=== PATIENT | female | born 1990 | race African-American/Black ===

== ENCOUNTER 2024-05-21 09:25 | Emergency (ER) | payer SELFPAY ==
[~2024-05-21] VITALS: Ht 167.6 cm; Wt 89.8 kg
[2024-05-21 09:38] VITALS: RESP 22; TEMP 98.8
[2024-05-21] MEDS: DEXAMETHASONE 4 MG TAB PO STA (10:00)
[2024-05-21 10:05] VITALS: PULSE 74; RESP 22
[2024-05-21] MEDS: ALBUTEROL/IPRATROPIUM 3 ML NEB NEB ONE (10:05)
[2024-05-21 11:00] VITALS: PULSE 95; O2SAT 97
[2024-05-21] MEDS ORDERED: VENTOLIN HFA18 GM INH (11:16)
== END 2024-05-21 12:07 | disposition home or self-care (01) ==
LOC: ER 09:34
DX: R06.02 Shortness of breath (principal); J45.901 Unspecified asthma with (acute) exacerbation
CPT/HCPCS: 99284; J8540

== ENCOUNTER 2024-05-23 19:25 | Observation (INO) | payer MEDICARE ==
[~2024-05-23] VITALS: Ht 167.6 cm; Wt 89.8 kg
[~2024-05-23 19:25] MED LIST: VENTOLIN HFA18 GM INH
[2024-05-23 20:37] VITALS: TEMP 98.7
[2024-05-23] MEDS: PREDNISONE 20 MG TAB PO STA (20:49)
[2024-05-23 21:05] LABS: BASOPHILS # (AUTO) 0.1 (0.0-0.1); EOSINOPHILS # (AUTO) 0.8 (0.0-0.4); EOSINOPHILS % 8.2 % (0.0-6.0); HEMOGLOBIN 12.8 g/dL (12.0-16.0); LYMPHOCYTES # (AUTO) 2.3 (1.0-3.2); LYMPHOCYTES % 22.8 % (18.0-39.1); MEAN CORPUSCULAR HEMOGLOBIN 29.7 pg (28-32); MEAN CORPUSCULAR HGB CONC 33.7 g/dL (31-35); MEAN CORPUSCULAR VOLUME 88.2 fL (81-99); MONOCYTES # (AUTO) 0.9 (0.2-0.8); NEUTROPHILS % 58.7 % (38.7-80.0); PLATELET COUNT 165 x10e3/uL (140-360); RED BLOOD COUNT 4.31 x10e6/uL (3.6-5.1); WHITE BLOOD COUNT 10.21 x10e3/uL (4.8-10.8)
[2024-05-23] MEDS: MAGNESIUM SULF 1GRAM/DEXTROSE 100 ML IV STA (21:08)
[2024-05-23 21:09] VITALS: PULSE 103; RESP 20; O2SAT 100
[2024-05-23] MEDS: ALBUTEROL/IPRATROPIUM 3 ML NEB NEB STA (21:13)
[2024-05-23 21:19] LABS: ALBUMIN/GLOBULIN RATIO 1.3 (0.8-2.0); ANION GAP 15.7 mmol/L (8-16); BILIRUBIN,TOTAL 1.2 mg/dL (0.2-1.2); CALCIUM 9.2 mg/dL (8.4-10.2); CREATININE, SERUM 0.8 mg/dL (0.57-1.11); TOTAL PROTEIN 7.1 g/dL (6.5-8.1)
[2024-05-23 21:25] LABS: TROPONIN I 0.002 ng/mL (0-0.300)
[2024-05-23 21:40] LABS: STREPTOCOCCUS GRP A ANTIGEN NEGATIVE (NEGATIVE)
[2024-05-23 21:41] LABS: CORONAVIRUS COVID-19 AG NEGATIVE (NEGATIVE); INFLUENZA A AG NEGATIVE (NEGATIVE); INFLUENZA B AG NEGATIVE (NEGATIVE)
[2024-05-23 21:43] VITALS: PULSE 99; RESP 22
[2024-05-23 22:11] LABS: POTASSIUM 2.7 mmol/L (3.5-5.1)
[2024-05-23 22:30] VITALS: BP 120/70; PULSE 86; RESP 20; TEMP 99; O2SAT 99
[2024-05-23 22:48] VITALS: BP 120/70; PULSE 86; RESP 20; TEMP 99; O2SAT 99
[2024-05-24] MEDS: POTASSIUM CHLORIDE 20 MEQ TAB CR PO STA (00:13)
[2024-05-24] MEDS: SODIUM CHLORIDE 0.9% 1000ML 1,000 ML IV SCH (00:33)
[2024-05-24] MEDS: METHYLPREDNISOLONE SOD SUCC 40 MG/ML VIAL 1ML IV SCH (02:14)
[2024-05-24 02:51] VITALS: PULSE 89; RESP 20; O2SAT 99
[2024-05-24] MEDS: ALBUTEROL/IPRATROPIUM 3 ML NEB NEB PRN (02:54)
[2024-05-24 03:21] LABS: CREATINE KINASE 125 IU/L (29-168)
[2024-05-24 03:23] VITALS: BP 123/72; PULSE 99; RESP 18; TEMP 98.4; O2SAT 94
[2024-05-24 03:30] LABS: TROPONIN I < 0.001 ng/mL (0-0.300)
[2024-05-24 05:24] LABS: BASOPHILS % 0.4 % (0.0-1.0); HEMATOCRIT 37.9 % (34.2-44.1); HEMOGLOBIN 12.8 g/dL (12.0-16.0); LYMPHOCYTES # (AUTO) 0.4 (1.0-3.2); LYMPHOCYTES % 9.4 % (18.0-39.1); MEAN CORPUSCULAR HGB CONC 33.8 g/dL (31-35); MEAN CORPUSCULAR VOLUME 88.8 fL (81-99); MONOCYTES # (AUTO) 0.1 (0.2-0.8); MONOCYTES % 1.9 % (4.4-11.3); NEUTROPHILS # (AUTO) 4.1 (2.1-6.9); NEUTROPHILS % 87.9 % (38.7-80.0); PLATELET COUNT 169 x10e3/uL (140-360); RED BLOOD COUNT 4.27 x10e6/uL (3.6-5.1); RED CELL DISTRIBUTION WIDTH 12.8 % (11.7-14.4); WHITE BLOOD COUNT 4.66 x10e3/uL (4.8-10.8)
[2024-05-24 05:59] LABS: ALBUMIN 3.7 g/dL (3.5-5.0); ALBUMIN/GLOBULIN RATIO 1.2 (0.8-2.0); ANION GAP 13.7 mmol/L (8-16); BILIRUBIN,TOTAL 0.9 mg/dL (0.2-1.2); CALCIUM 9.1 mg/dL (8.4-10.2); CREATININE, SERUM 0.79 mg/dL (0.57-1.11); POTASSIUM 3.7 mmol/L (3.5-5.1); TOTAL PROTEIN 6.8 g/dL (6.5-8.1)
[2024-05-24 06:17] VITALS: PULSE 98; RESP 22; O2SAT 98
[2024-05-24] MEDS ORDERED: MELATONIN 3 MG TAB PO PRN (06:45)
[2024-05-24] MEDS ORDERED: SIMETHICONE 80 MG CHEW PO PRN (06:45)
[2024-05-24] MEDS ORDERED: METOPROLOL TARTRATE INJ 1 MG/ML VIAL IV PRN (06:45)
[2024-05-24] MEDS ORDERED: GUAIFENESIN/DEXTROMETHORPHAN LIQD 5 ML UDC NG PRN (06:45)
[2024-05-24] MEDS ORDERED: DOCUSATE SODIUM 100 MG CAP PO PRN (06:45)
[2024-05-24] MEDS ORDERED: ACETAMINOPHEN 325 MG TAB PO PRN (06:45)
[2024-05-24] MEDS ORDERED: ONDANSETRON HCL INJ 2MG/ML 2ML 2 MG/ML VIAL IV PRN (06:45)
[2024-05-24 08:00] VITALS: BP 115/55; PULSE 106; RESP 20; TEMP 98.6; O2SAT 100
[2024-05-24 08:15] LABS: CHOL/HDL RATIO 2.4 (3.0-3.6)
[2024-05-24] MEDS: FAMOTIDINE 20 MG TAB PO SCH (09:06)
[2024-05-24] MEDS: LORATADINE 10 MG TAB PO SCH (09:06)
[2024-05-24] MEDS: BENZONATATE 100 MG CAP PO SCH (09:11)
[2024-05-24] MEDS: Doxycycline IV 100 MG in SODIUM CHLORIDE 0.9% 100 ML IV SCH (09:23)
[2024-05-24 11:00] VITALS: BP 124/81; PULSE 87; RESP 19; TEMP 98.2; O2SAT 100
[2024-05-24 11:15] LABS: TROPONIN I 0.01 ng/mL (0-0.300)
[2024-05-24] MEDS ORDERED: SINGULAIR10 MG PO (12:19)
[2024-05-24] MEDS ORDERED: FAMOTIDINE20 MG PO (12:19)
[2024-05-24] MEDS ORDERED: BENZONATATE100 MG PO (12:19)
[2024-05-24] MEDS ORDERED: LORATADINE10 MG PO (12:19)
[2024-05-24] MEDS ORDERED: PREDNISONE20 MG PO (12:19)
[2024-05-24] MEDS ORDERED: ENOXAPARIN SOD INJ 40 MG/0.4 ML SYR SC SCH (17:00)
[2024-05-24] MEDS ORDERED: BUDESONIDE/FORMOTEROL 160/4.5MCG INHALER INH SCH (19:00)
[2024-05-24] MEDS ORDERED: MONTELUKAST SODIUM 10 MG TAB PO SCH (21:00)
[2024-05-25] MEDS ORDERED: PREDNISONE 20 MG TAB PO SCH (09:00)
== END 2024-05-24 13:40 | disposition home or self-care (01) ==
LOC: ER 19:41 → ERHOLD 21:28 → MED/SURG 22:29
PROVIDERS: ADMIT Internal Medicine; ATTEND Internal Medicine
DX: J45.901 Unspecified asthma with (acute) exacerbation (principal); E66.9 Obesity, unspecified; Z68.32 Body mass index [BMI] 32.0-32.9, adult; U07.0 Vaping-related disorder; Z72.0 Tobacco use
CPT/HCPCS: 36415; 71045; 80053 ×2; 80061; 82550 ×2; 83036; 83518; 83690; 83880; 84484 ×2; 84702; 85025 ×2; 87070; 87428; 93005; 94640 ×3; 94799 ×2; 99284; G0378 ×2; J2919; J3475; J7030; J7050; J7512